=== PATIENT | female | born 1990 | race Caucasian/White ===

== ENCOUNTER 2016-04-29 14:00 | Inpatient (IN) | payer OTHER ==
[2016-04-29 15:17] LABS: BASOPHIL 0.2 % (0-2.0); EOSINOPHIL 4.5 % (0-4.5); MCH 27.6 pg (25.7-33.7); MCHC 33.1 g/dl (32.0-36.0); MEAN CELL VOLUME 83.4 fl (80-96); MEAN PLT VOLUME 8.7 fl (7.5-11.1); NEUTROPHILS 63.8 % (42.8-82.8); PLATELET COUNT 240 K/MM3 (134-434); WHITE BLOOD COUNT 9.1 K/mm3 (4.0-10.0)
[2016-04-29 15:20] LABS: URINE APPEARANCE CLEAR; URINE BILIRUBIN NEGATIVE (NEGATIVE); URINE BLOOD NEGATIVE (NEGATIVE); URINE COLOR LTYELLOW; URINE GLUCOSE (UA) NEGATIVE (NEGATIVE); URINE KETONE NEGATIVE (NEGATIVE); URINE NITRITE NEGATIVE (NEGATIVE); URINE UROBILINOGEN NEGATIVE E.U./dl (0.2-1.0)
[2016-04-29 15:26] LABS: URINE LEUK ESTERASE TRACE (NEGATIVE); URINE PROTEIN 2+ (NEGATIVE)
[2016-04-29 15:29] LABS: URINE RBC 2 /hpf (0-3); URINE WBC 6 /hpf (3-5)
[2016-04-29 15:39] LABS: ALBUMIN 2.5 g/dl (3.4-5.0); ANION GAP 12 (8-16); BILIRUBIN,TOTAL 0.1 mg/dL (0.2-1.0); CALCIUM 8.9 mg/dL (8.5-10.1); CO2 22 mmol/L (21-32); CREATININE 0.7 mg/dL (0.55-1.02); GLUCOSE,RANDOM 85 mg/dL (74-106); SGPT/ALT 15 U/L (12-78); TOT PROT 6.3 g/dl (6.4-8.2); URIC ACID 5.2 mg/dL (2.6-7.2)
[2016-04-29 15:45] LABS: ALK PHOS 177 U/L (45-117); SGOT/AST 15 U/L (15-37)
[2016-04-29 16:25] VITALS: BMI 46.8
[2016-04-29 16:34] LABS: ACTIVATED PTT 31.2 SECONDS (26.9-34.4)
[2016-04-29 16:41] LABS: INR 0.96 (0.82-1.09); PROTHROMBIN TIME (PATIENT) 10.5 SEC (9.98-11.88)
--- NOTE | 2016-04-29 17:16 | PN ---
Progress Note (short form) - Note Progress Note: cx closed, long ,vx -3 mi, fhr cat 1, bp 140/90 , asymptomatic , induction, rba discussed , agreed to have cervidil induction
--- NOTE | 2016-04-29 17:21 | HP ---
Past Medical History - Primary Care Physician PCP:: Aaron Moran - Admission Chief Complaint: 36 weeks, pih, for cervidll induction History of Present Illness: 26 yo f g 3 p1001, edc by elida 05/26/16 with hx of elevated BP and proteinuria referred by [facility] for induction of labor , rba discussed, no head ache, no blurred vision, no RUQ pain,, hx of pih with last History Source: Patient Limitations to Obtaining History: No Limitations - Past Medical History Pulmonary: Yes: Asthma ...: 3 ...Para: 1 ...Term: 1 ...: 0 ...Spon : 1 ...Induced : 0 ...Multiple Gestation: 0 ...EDC by Elida: 05/26/16 Additional OB History: intermediate risk for DS, maternity 21 negative - Past Surgical History Hx Myomectomy: No Hx Transabdominal Cerclage: No - Smoking History Smoking history: Never smoked Have you smoked in the past 12 months: No - Alcohol/Substance Use Hx Alcohol Use: No History of Substance Use: reports: None Home Medications - Allergies Allergies/Adverse Reactions: Allergies Allergy/AdvReac Type Severity Reaction Status Date / Time No Known Allergies Allergy Verified 04/29/16 15:34 - Home Medications Home Medications: Ambulatory Orders Albuterol Sulfate Inhaler - [Ventolin Hfa Inhaler -] 1 - 2 inh PO Q4H PRN Vitamins (Sjr) - 1 tab PO DAILY 04/15/16 Review of Systems - Review of Systems Constitutional: reports: No Symptoms Eyes: reports: No Symptoms HENT: reports: No Symptoms Neck: reports: No Symptoms Cardiovascular: reports: No Symptoms Respiratory: reports: No Symptoms Gastrointestinal: reports: No Symptoms Genitourinary: reports: No Symptoms Breasts: reports: No Symptoms Reported Musculoskeletal: reports: No Symptoms Integumentary: reports: No Symptoms Neurological: reports: No Symptoms Endocrine: reports: No Symptoms Hematology/Lymphatic: reports: No Symptoms Psychiatric: reports: No Symptoms Physical Exam - Maternity Vital Signs: Vital Signs Temperature 98.0 F 04/29/16 15:15 Pulse Rate 75 04/29/16 16:30 Respiratory Rate 20 04/29/16 16:30 Blood Pressure 141/89 04/29/16 16:30 O2 Sat by Pulse Oximetry (%) Constitutional: Yes: Well Nourished, No Distress, Calm Eyes: Yes: WNL, Conjunctiva Clear, EOM Intact HENT: Yes: WNL, Atraumatic, Normocephalic Neck: Yes: WNL, Supple, Trachea Midline Cardiovascular: Yes: WNL, Regular Rate and Rhythm Breast(s): Yes: WNL - Abdominal Exam/OB Fundal Height: 36 Number of Fetuses: Single Contractions: No Regularity: Irritability Intensity: Unaware Monitor Mode: External Heart Rate Location: [facility] Category: I Accelerations: Uniform - Vaginal Exam/OB Vaginal Bleediing: No Speculum Exam: No Dilatation (cm): closed Effacement (%): 0 Amniotic Membrane Status: Intact Presentation: Vertex/Position Station: -3 - Physical Exam Musculoskeletal: Yes: WNL Edema: Yes Edema: LLE: 1+, RLE: 1+ Deep Tendon Reflex Grade: Normal +2 Psychiatric: Yes: WNL - Labs Lab Results: CBC, BMP 04/29/16 14:45 04/29/16 14:45 Hemorrhage Risk Assessment - Risk Factors Medium Risk Factors: Yes: None High Risk Factors: Yes: None Risk Score: 1 Risk Level: Medium Risk Problem List - Problems (1) with 36 completed weeks gestation Code(s): Z3A.36 - 36 WEEKS GESTATION OF (2) induced hypertension, antepartum Code(s): O13.9 - GESTATIONAL HTN W/O SIGNIFICANT PROTEINURIA, UNSP TRIMESTER (3) Morbid obesity Code(s): E66.01 - MORBID (SEVERE) OBESITY DUE TO EXCESS CALORIES Qualifiers: Obesity type: due to excess calories Qualified Code(s): E66.01 - Morbid (severe) obesity due to excess calories Assessment/Plan plan admit, heart monitoring, . bp monitoring, monitor bp if diastolic greater 105 will start labatalol, ,possible Mgso4
[2016-04-29] MEDS ORDERED: DEXTROSE 5%-LACTATED RINGERS 500 ML IV ONE ×2 (18:20→19:20)
[2016-04-29] MEDS ORDERED: BUTORPHANOL TARTRATE 1 MG/ML VIAL IVPUSH PRN (18:32)
[2016-04-29] MEDS ORDERED: PROMETHAZINE HCL 25 MG/1 ML VIAL IVPUSH PRN (18:33)
[2016-04-29] MEDS ORDERED: DINOPROSTONE 10 MG VAGINAL SUPPOSITORY VG ONE (18:45)
[2016-04-29] MEDS ORDERED: AMPICILLIN - 2 GM in SODIUM CHLORIDE 100 ML IVPB ONE (20:17)
--- NOTE | 2016-04-29 20:17 | PN ---
Progress Note (short form) - Note Progress Note: c/o pain cx closed 50 vx -3 srom ,clear fhr cat 1 , contraction q 2min, short duration, wants pain meds Problem List - Problems (1) with 36 completed weeks gestation Code(s): Z3A.36 - 36 WEEKS GESTATION OF (2) induced hypertension, antepartum Code(s): O13.9 - GESTATIONAL HTN W/O SIGNIFICANT PROTEINURIA, UNSP TRIMESTER (3) Morbid obesity Code(s): E66.01 - MORBID (SEVERE) OBESITY DUE TO EXCESS CALORIES Qualifiers: Obesity type: due to excess calories Qualified Code(s): E66.01 - Morbid (severe) obesity due to excess calories
[2016-04-29] MEDS ORDERED: DEXTROSE 5%-LACTATED RINGERS 1,000 ML IV SCH (20:30)
[2016-04-29 21:21] LABS: HIV 1 & 2 AB NEGATIVE; HIV 1 AGp24 NEGATIVE
--- NOTE | 2016-04-29 21:58 | PN ---
Progress Note (short form) - Note Progress Note: cx 9 cm 100 vx 0 mr, clear fluid , variable dece with contraction, cervidil removed .o2, lt side, scalp electrode , revaluate 1n 15 min Problem List - Problems (1) with 36 completed weeks gestation Code(s): Z3A.36 - 36 WEEKS GESTATION OF (2) induced hypertension, antepartum Code(s): O13.9 - GESTATIONAL HTN W/O SIGNIFICANT PROTEINURIA, UNSP TRIMESTER (3) Morbid obesity Code(s): E66.01 - MORBID (SEVERE) OBESITY DUE TO EXCESS CALORIES Qualifiers: Obesity type: due to excess calories Qualified Code(s): E66.01 - Morbid (severe) obesity due to excess calories
[2016-04-29] MEDS ORDERED: oxyCODONE HCL 5 MG TABLET PO PRN (22:12)
[2016-04-29] MEDS ORDERED: METHYLERGONOVINE MALEATE 0.2 MG/1 ML AMP IM PRN (22:12)
[2016-04-29] MEDS ORDERED: BENZOCAINE 28 GM HEMORRHOIDAL OINTMENT TP PRN (22:12)
[2016-04-29] MEDS ORDERED: IBUPROFEN 600 MG TABLET (FP) PO PRN (22:12)
[2016-04-29] MEDS ORDERED: BENZOCAINE 20% 57 GM BOTTLE TP PRN (22:12)
[2016-04-29] MEDS ORDERED: BISACODYL 10 MG SUPP.RECT RC PRN (22:12)
[2016-04-29] MEDS ORDERED: WITCH HAZEL 50% (TUCKS) 40 PAD/JAR PAD TP PRN (22:12)
[2016-04-29] MEDS ORDERED: D5W-LR W/ 20 UNITS OXYTOCIN 1,000 ML IV SCH (22:15)
[2016-04-29 22:33] LABS: ARTERIAL BLOOD GAS BASE EXCESS -1.4 meq/l (-2-2); ARTERIAL BLOOD GAS pH 7.31 (7.35-7.45)
[2016-04-29 22:37] LABS: VENOUS PH 7.35 (7.32-7.42)
[2016-04-29 22:38] LABS: ARTERIAL BLOOD GAS PO2 22.4 mmHg (80-100); LPM/O2% 21%; PT. ON O2? no; TYPE OF O2 room air
[2016-04-29 22:39] LABS: ARTERIAL BLD GAS O2 SATURATION 45.6 % (90-98.9)
[2016-04-29] MEDS ORDERED: LABETALOL HCL 200 MG TABLET (FP) PO ONE (23:45)
[2016-04-30] MEDS ORDERED: AMPICILLIN - 1 GM in SODIUM CHLORIDE 100 ML IVPB SCH (00:20)
[2016-04-30] MEDS: LABETALOL HCL 200 MG TABLET (FP) PO PRN ×2 (06:42→14:57)
[2016-04-30 08:36] LABS: BASOPHIL 0.1 % (0-2.0); EOSINOPHIL 0.2 % (0-4.5); MCH 27.5 pg (25.7-33.7); MCHC 32.6 g/dl (32.0-36.0); MEAN CELL VOLUME 84.5 fl (80-96); MEAN PLT VOLUME 8.4 fl (7.5-11.1); NEUTROPHILS 77.3 % (42.8-82.8); PLATELET COUNT 224 K/MM3 (134-434); RDW 14.2 % (11.6-15.6); WHITE BLOOD COUNT 15.1 K/mm3 (4.0-10.0)
[2016-04-30] MEDS ORDERED: INFLUENZA VACCINE 60 MCG/0.5 ML (P/F DISP.SYRIN 16-17) IM ONE (09:00)
[2016-04-30] MEDS ORDERED: DIPHTH,PERTUSS(ACELL),TET 0.5 ML DISP.SYRIN IM ONE (10:00)
[2016-04-30] MEDS ORDERED: INFLUENZA VACCINE 45 MCG/0.5 ML (MDV 16-17) IM ONE (10:00)
[2016-04-30] MEDS: FERROUS SO4 325 MG TABLET (FP) PO SCH ×2 (10:11→22:00)
[2016-04-30] MEDS: PRENATAL VITAMINS W/ FOLIC ACID TABLET (FP) PO SCH (10:11)
[2016-04-30] MEDS: ACETAMINOPHEN 325 MG TABLET (FP) PO PRN (20:20)
[2016-04-30] MEDS ORDERED: SENNOSIDES/DOCUSATE COMBO (SENNA PLUS) TABLET (UD) PO PRN (22:00)
[2016-05-01] MEDS: LABETALOL HCL 200 MG TABLET (FP) PO PRN (01:00)
[2016-05-01 08:12] VITALS: BP 129/87; PULSE 80; TEMP 98.8
--- NOTE | 2016-05-01 08:16 | PN ---
Progress Note (short form) - Note Progress Note: ppd 1 doing well, no head ache, no blurred vision CBC, BMP 04/30/16 07:45 04/29/16 14:45 Last Vital Signs Temp Pulse Resp BP Pulse Ox 98.8 F 80 20 129/87 100 05/01/16 08:11 05/01/16 08:11 05/01/16 08:11 05/01/16 08:11 04/29/16 23:30 abdomen soft, non tender, no cva no ruq tenderness ext no edema, DTR normal ppd 2 doing well, pih bp stable Problem List - Problems (1) with 36 completed weeks gestation Code(s): Z3A.36 - 36 WEEKS GESTATION OF (2) induced hypertension, antepartum Code(s): O13.9 - GESTATIONAL HTN W/O SIGNIFICANT PROTEINURIA, UNSP TRIMESTER (3) Morbid obesity Code(s): E66.01 - MORBID (SEVERE) OBESITY DUE TO EXCESS CALORIES Qualifiers: Obesity type: due to excess calories Qualified Code(s): E66.01 - Morbid (severe) obesity due to excess calories
[2016-05-01] MEDS ORDERED: PNEUMOCOCCAL 23 VACCINE 0.5 ML VIAL IM ONE (08:30)
[2016-05-01] MEDS: FERROUS SO4 325 MG TABLET (FP) PO SCH (09:30)
[2016-05-01] MEDS: ACETAMINOPHEN 325 MG TABLET (FP) PO PRN (09:30)
[2016-05-01] MEDS: PRENATAL VITAMINS W/ FOLIC ACID TABLET (FP) PO SCH (09:32)
[2016-05-01] MEDS ORDERED: PNEUMOC 13-VAL CONJ-DIP CRM/PF 0.5 ML DISP.SYRIN IM ONE (10:00)
--- NOTE | 2016-05-02 22:27 | DS ---
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 Signs: Vital Signs Temperature 98.8 F 05/01/16 08:11 Pulse Rate 80 05/01/16 08:11 Respiratory Rate 20 05/01/16 08:11 Blood Pressure 129/87 05/01/16 08:11 O2 Sat by Pulse Oximetry (%) 100 04/29/16 23:30 Constitutional: Yes: Well Nourished, No Distress, Calm Eyes: Yes: WNL, Conjunctiva Clear, EOM Intact HENT: Yes: WNL, Atraumatic, Normocephalic Neck: Yes: WNL, Supple, Trachea Midline Cardiovascular: Yes: WNL, Regular Rate and Rhythm Respiratory: Yes: WNL, Regular, CTA Bilaterally Gastrointestinal: Yes: WNL ...Rectal Exam: Yes: WNL Renal/: Yes: WNL ....Post : Yes: Uterus firm, Uterus non-tender, Slight lochia rubra Breast(s): Yes: WNL Musculoskeletal: Yes: WNL Extremities: Yes: WNL Integumentary: Yes: WNL Neurological: Yes: WNL, Alert, Oriented ...Motor Strength: WNL Psychiatric: Yes: WNL, Alert, Oriented Labs: CBC, BMP 04/30/16 07:45 04/29/16 14:45 Delivery - Delivery Vaginal Delivery: Spontaneous (no complication) Type of Anesthesia: None Episiotomy/Laceration: None EBL (cc): 300 Delivery, Single - Stages of Labor Date 1st Stage Initiatied: 04/29/16 Time 1st Stage Initiated: 20:05 Date 2nd Stage Initiated: 04/29/16 Time 2nd Stage Initiated: 22:00 Date of Delivery: 04/29/16 Time of Delivery: 22:02 Time Placenta Delivered: 22:06 Placenta: Yes: Spontaneous - Condition of Splunk Architect/Medical Advisor Present: No Infant Gender: Male Weight: 5 lb 12 oz Position: OP Total Hours ROM (Hrs/Mins): 1h52m - 1 Minute Total Score: 8 5 Minutes Total Score: 9 - Feeding Plan Initial Plan: Elected not to breastfeed exclusively throughout hospitalization Discharge Summary Reason For Visit: PREECLAMPSIA Procedures: Principal: Condition: Good - Instructions Diet, Activity, Other Instructions: regular diet, follow up [facility] care 1weeks call [facility] for appointment. [phone] Disposition: HOME - Home Medications Comprehensive Discharge Medication List: Ambulatory Orders Albuterol Sulfate Inhaler - [Ventolin Hfa Inhaler -] 1 - 2 inh PO Q4H PRN Vitamins (Sjr) - 1 tab PO DAILY 04/15/16
== END 2016-05-01 13:37 | disposition home or self-care (01) | DRG 560 ==
LOC: JDEL 14:00 → JLDR 15:15 → J3W 04-30 00:01
PROVIDERS: ADMIT Obstetrics & Gynecology; ATTEND Obstetrics & Gynecology
PROC: 10E0XZZ Delivery of Products of Conception, External Approach (ICD-10-PCS; principal; 2016-04-29)
PROC: 3E0P7GC Introduction of Other Therapeutic Substance into Female Reproductive, Via Natural or Artificial Opening (ICD-10-PCS; 2016-04-29)
DX: O13.4 Gestational [pregnancy-induced] hypertension without significant proteinuria, complicating childbirth (principal); O99.214 Obesity complicating childbirth; O75.89 Other specified complications of labor and delivery; J45.909 Unspecified asthma, uncomplicated; E66.01 Morbid (severe) obesity due to excess calories; Z68.42 Body mass index [BMI] 45.0-49.9, adult; Z3A.36 36 weeks gestation of pregnancy; Z37.0 Single live birth
CPT/HCPCS: 36415; 36600; 71020-TC; 80053; 81003; 81015; 82803; 82977; 83010; 84550; 85025; 85044; 85610; 85730; 86593; 86850; 86900; 86901; 87389; 90686; 90715; 90732; G0008; G0009

== ENCOUNTER 2017-07-15 10:50 | Inpatient (IN) | payer OTHER ==
[2017-07-15] MEDS ORDERED: LABETALOL HCL 200 MG TABLET (FP) ONE ×2 (11:32→17:42)
[2017-07-15] MEDS ORDERED: LABETALOL HCL 200 MG TABLET (FP) PO ONE (11:35)
[2017-07-15 12:48] LABS: BASO % 0.3 % (0-2.0); EOS % 1.9 % (0-4.5); HEMATOCRIT 42.7 % (32.4-45.2); HEMOGLOBIN 13.8 GM/dL (10.7-15.3); LYMPH % 20.7 % (8-40); MCH 26.6 pg (25.7-33.7); MCHC 32.4 g/dl (32.0-36.0); MEAN PLT VOLUME 8.5 fl (7.5-11.1); NEUT % 69.1 % (42.8-82.8); PLATELET COUNT 263 K/MM3 (134-434); RBC 5.21 M/mm3 (3.60-5.2); RDW 15.2 % (11.6-15.6); WHITE BLOOD COUNT 8.5 K/mm3 (4.0-10.0)
[2017-07-15 13:04] LABS: URINE APPEARANCE CLEAR; URINE BILIRUBIN NEGATIVE (<2.0 mg/dL); URINE BLOOD NEGATIVE (NEGATIVE); URINE COLOR LTYELLOW; URINE GLUCOSE (UA) NEGATIVE (NEGATIVE); URINE KETONE NEGATIVE (NEGATIVE); URINE LEUK ESTERASE NEGATIVE (NEGATIVE); URINE NITRITE NEGATIVE (NEGATIVE); URINE UROBILINOGEN NEGATIVE mg/dL (0.2-1.0)
[2017-07-15 13:07] LABS: URINE PROTEIN 2+ (NEGATIVE)
[2017-07-15 13:08] LABS: EPI CELLS RARE /HPF (FEW); URINE BACTERIA RARE /hpf (NONE SEEN); URINE HYALINE CAST 1 /lpf; URINE MUCUS RARE
[2017-07-15 13:13] LABS: INR 0.94 (0.82-1.09); PROTHROMBIN TIME (PATIENT) 10.6 SEC (9.7-13.0)
[2017-07-15 13:16] LABS: ACTIVATED PTT 30.9 SECONDS (26.9-34.4)
[2017-07-15 13:25] LABS: URINE AMPHETAMINES NEGATIVE ng/ml (CUTOFF=500); URINE BARBITURATES NEGATIVE ng/ml (CUTOFF=200)
[2017-07-15 13:26] LABS: COCAINE, UR NEGATIVE ng/ml (CUTOFF=300); METHADONE, UR NEGATIVE ng/ml (CUTOFF=300); OPIATES, URI NEGATIVE ng/ml (CUTOFF=300); PHENCYCLIDINE,URINE NEGATIVE ng/ml (CUTOFF=25); URINE BENZODIAZEPINES NEGATIVE ng/ml (CUTOFF=200)
[2017-07-15 13:30] LABS: ALBUMIN 2.5 g/dl (3.4-5.0); ALK PHOS 180 U/L (45-117); ANION GAP 10 (8-16); BILIRUBIN,TOTAL 0.2 mg/dL (0.2-1.0); BLOOD UREA NITROGEN 11 mg/dL (7-18); CALCIUM 8.8 mg/dL (8.5-10.1); CHLORIDE 107 mmol/L (98-107); CO2 22 mmol/L (21-32); CREATININE 0.9 mg/dL (0.55-1.02); GLUCOSE,RANDOM 72 mg/dL (74-106); POTASSIUM 4.4 mmol/L (3.5-5.1); SGOT/AST 16 U/L (15-37); SGPT/ALT 18 U/L (12-78); SODIUM 139 mmol/L (136-145); TOT PROT 6.4 g/dl (6.4-8.2)
[2017-07-15 14:06] LABS: URINE TOTAL VOLUME 750 mL
[2017-07-15 14:26] LABS: CREATININE 0.9 mg/dL (0.55-1.02)
[2017-07-15 14:31] LABS: URINE PROTEIN 320 mg/dl
[2017-07-15 14:54] LABS: URIC ACID 6.7 mg/dL (2.6-7.2)
[2017-07-15] MEDS ORDERED: SODIUM PHOSPHATE/NA BIPHOS 133 ML ENEMA PR ONE (15:14)
[2017-07-15] MEDS ORDERED: DEXTROSE 5%-LACTATED RINGERS 1,000 ML IV SCH (15:15)
--- NOTE | 2017-07-15 15:24 | HP ---
Past Medical History - Primary Care Physician PCP:: Queenie Martin - Admission Chief Complaint: 27 yrs 36.5/7 weeks admitted due to severe preclempsia for induction of labor. 24 hr urine protein 2400 mg , cr clearance 83/ml/min, total urine vol 750 ml. Today upon arrival BP 160/109, 154/107, 159 /107, 135/81 . pt was given po Labetalol 200 mg at 11/40 am . no c/o headache, vomiting, epigastric pain History of Present Illness: pt did not have any care she presented first time on 07/13/17 BP was high , urine proten was 3+ , she was sent to L&D HELLP work up was done reported uric acid 7.6, GGt 20 U/L , Ast 16, ALT 17, urine protein 3+ BP recoeded 148/94 max. 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 Weeks Gestation by Dates: 36.2 ...EDC by Dates: 08/10/17 ...EDC by Sono: 08/07/17 (36.5 ) Additional OB History: G1 04/2014 6lbs h/o preclempsia in [facility]. G2 04/2016 5lbs [facility] Infectious Disease: Yes: Other (noknown) Psych: No: Addictions, Anxiety, Bipolar, Depression Endocrine: No: Diabetes Mellitus, Hyperthyroidism, Hypothyroidism - Past Surgical History Past Surgical History: Yes: None Hx Myomectomy: No Hx Transabdominal Cerclage: No - Smoking History Smoking history: Never smoked Have you smoked in the past 12 months: No - Alcohol/Substance Use Hx Alcohol Use: No History of Substance Use: reports: None Home Medications - Allergies Allergies/Adverse Reactions: Allergies Allergy/AdvReac Type Severity Reaction Status Date / Time No Known Allergies Allergy Verified 07/13/17 17:02 - Home Medications Home Medications: Ambulatory Orders Vitamins (Sjr) - 1 tab PO DAILY 04/15/16 Labetalol HCl [Normodyne -] 200 mg PO BID #14 tablet 07/14/17 Physical Exam - Maternity Vital Signs: Vital Signs Temperature 98.5 F 07/15/17 11:07 Pulse Rate 66 07/15/17 13:30 Respiratory Rate 18 07/15/17 13:30 Blood Pressure 139/81 07/15/17 13:30 O2 Sat by Pulse Oximetry (%) Selected Entries 07/14/17 07:18 Weight 288 lb Constitutional: Yes: Well Nourished, No Distress, Obese Eyes: Yes: WNL HENT: Yes: WNL, Normocephalic Neck: Yes: WNL Cardiovascular: Yes: WNL, Regular Rate and Rhythm Lungs: Clear to auscultation Breast(s): Yes: WNL - Abdominal Exam/OB Fundal Height: 36 Number of Fetuses: Single Presentation: Vertex Contractions: No Monitor Mode: External Heart Rate (range): 120-130 Heart Rate Location: Midline Category: I Accelerations: Uniform Decelerations: None - Vaginal Exam/OB Vaginal Bleediing: No Speculum Exam: No Dilatation (cm): close Effacement (%): unefface Amniotic Membrane Status: Intact Presentation: Vertex/Position Station: -3 - Physical Exam Musculoskeletal: Yes: WNL Extremities: Yes: WNL. No: Calf Tenderness Edema: Yes Edema: LLE: 1+, RLE: 1+ Deep Tendon Reflex Grade: Normal +2 ...Motor Strength: WNL Psychiatric: Yes: WNL, Alert, Oriented - Labs Lab Results: CBC, BMP 07/15/17 12:30 07/15/17 12:30 Laboratory Tests 07/13/17 07/13/17 07/13/17 18:20 18:20 18:20 Retic Count 1.01 D Haptoglobin 67 Uric Acid 7.6 H GGT AST ALT Urine Collection Time Urine Total Volume Urine Creatinine Creatinine Clearance Ur Total Protein 24 Hr Opiates Screen Cocaine Screen U Marijuana (THC) Screen RPR Titer HIV 1&2 Antibody Screen HIV P24 Antigen 07/13/17 07/15/17 07/15/17 18:20 11:30 11:45 Retic Count Haptoglobin Uric Acid GGT 20 AST 16 ALT Urine Collection Time 24 Urine Total Volume 750 Urine Creatinine 144.0 Creatinine Clearance 83 L Ur Total Protein 24 Hr Opiates Screen Negative Cocaine Screen Negative U Marijuana (THC) Screen Negative RPR Titer HIV 1&2 Antibody Screen HIV P24 Antigen 07/15/17 07/15/17 07/15/17 12:30 12:30 12:30 Retic Count Haptoglobin Uric Acid 6.7 D GGT AST 16 ALT 18 Urine Collection Time Urine Total Volume Urine Creatinine Creatinine Clearance Ur Total Protein 24 Hr Opiates Screen Cocaine Screen U Marijuana (THC) Screen RPR Titer Nonreactive HIV 1&2 Antibody Screen Negative HIV P24 Antigen Negative 07/15/17 14:00 Retic Count Haptoglobin Uric Acid GGT AST ALT Urine Collection Time Urine Total Volume Urine Creatinine Creatinine Clearance Ur Total Protein 24 Hr 2400 H Opiates Screen Cocaine Screen U Marijuana (THC) Screen RPR Titer HIV 1&2 Antibody Screen HIV P24 Antigen Laboratory Tests 07/15/17 07/15/17 11:30 14:00 Urine Collection Time 24 Urine Total Volume 750 Urine Creatinine 142.0 Ur Creatinine 24 Hour 1065.0 Creatinine Clearance 83 L Problem List - Problems (1) 36 weeks gestation of Code(s): Z3A.36 - 36 WEEKS GESTATION OF (2) Severe pre-eclampsia Code(s): O14.10 - SEVERE PRE-ECLAMPSIA, UNSPECIFIED TRIMESTER (3) Morbid obesity Code(s): E66.01 - MORBID (SEVERE) OBESITY DUE TO EXCESS CALORIES (4) Elective induction of labor planned Code(s): [id number] - Assessment/Plan 27 yrs , no care , 36.5/7 weeks , morbidly obese , severe preclempsia Plan Cervidil induction 3.50 PM inserted Labetalol 200 mg po q 6 h MgSo4 IV prn if BP is remains elevated Trial vag , del Gbs prophylaxis when active labor
[2017-07-15] MEDS ORDERED: DINOPROSTONE 10 MG VAGINAL SUPPOSITORY VG ONE (16:00)
[2017-07-15 16:15] VITALS: BMI 47.4
[2017-07-15] MEDS: LABETALOL HCL 200 MG TABLET (FP) PO PRN (17:45)
[2017-07-15] MEDS ORDERED: AMPICILLIN - 2 GM in SODIUM CHLORIDE 100 ML IVPB ONE (18:20)
[2017-07-15] MEDS ORDERED: TUBERCULIN PPD 5 TU/0.1ML SYRINGE (IN PATIENT USE ONLY) ID ONE (20:15)
[2017-07-16] MEDS ORDERED: LABETALOL HCL 200 MG TABLET (FP) ONE ×3 (04:04→17:03)
[2017-07-16] MEDS: LABETALOL HCL 200 MG TABLET (FP) PO PRN ×3 (04:20→17:06)
[2017-07-16] MEDS ORDERED: DINOPROSTONE 10 MG VAGINAL SUPPOSITORY VG ONE (05:25)
--- NOTE | 2017-07-16 05:42 | PN ---
Progress Note (short form) - Note Progress Note: h/o cervidil removed at 3.50 AM after 12 hrs of insertion no headache, epigastric pain, blurred vision or dizziness no c/o cramps FHR reassuring NST occassional UC & FHR cat-1 tracing . pelvic exam : Cx FT/30 %/IN/Vx-3/soft Selected Entries 07/15/17 07/15/17 07/15/17 18:00 19:00 20:00 Temperature Pulse Rate Blood Pressure 151/95 147/76 141/90 07/15/17 07/15/17 07/15/17 21:00 22:00 23:00 Temperature Pulse Rate Blood Pressure 140/81 148/89 140/90 07/16/17 07/16/17 07/16/17 00:00 01:00 02:00 Temperature 98.4 F Pulse Rate 64 Blood Pressure 143/80 142/77 140/80 07/16/17 03:00 Temperature Pulse Rate Blood Pressure 132/77 IMP : Severe Preclempsia on Po Labetalol 200 mg q6h s/p 12 hrs of cervidil induction not effective . FHR tracing reasuring Plan Insert 2 nd cervidil done at 5.25 AM reg diet Problem List - Problems (1) 36 weeks gestation of Code(s): Z3A.36 - 36 WEEKS GESTATION OF (2) Severe pre-eclampsia Code(s): O14.10 - SEVERE PRE-ECLAMPSIA, UNSPECIFIED TRIMESTER (3) Morbid obesity Code(s): E66.01 - MORBID (SEVERE) OBESITY DUE TO EXCESS CALORIES (4) Elective induction of labor planned Code(s): [id number] -
[2017-07-16 06:06] LABS: HBsAG SCREEN Negative (Negative)
--- NOTE | 2017-07-16 07:17 | PN ---
Progress Note (short form) - Note Progress Note: 6.38 AM i was called to mention that patient is bleeding & alcides is full of blood nurse had taken out cervidil , blood clot noted . 6.40 AM exam cx 7 cm/100 % /memb bulging /vx -1 station AROM done clear large amount fluid noted scalp electrde insertion attempted , unsuccessful pt continues to push 6.43AM fully dilated 644AM baby delievered , OA position , 8/8 , Girl 6.46 placenta delivered EBL 350 ml perineum intact baby transferred to 3 nursery because under 37 weeks pt did not get GBS prophylaxis , due to precipitate labor 156/94, pulse 66/min plan pp pitocin & MgSo4 IV Problem List - Problems (1) 36 weeks gestation of Code(s): Z3A.36 - 36 WEEKS GESTATION OF (2) Severe pre-eclampsia Code(s): O14.10 - SEVERE PRE-ECLAMPSIA, UNSPECIFIED TRIMESTER (3) Morbid obesity Code(s): E66.01 - MORBID (SEVERE) OBESITY DUE TO EXCESS CALORIES (4) Elective induction of labor planned Code(s): [id number] - (5) Normal vaginal delivery Code(s): O80 - ENCOUNTER FOR FULL-TERM UNCOMPLICATED DELIVERY
[2017-07-16] MEDS ORDERED: BENZOCAINE 20% 57 GM BOTTLE TP PRN (07:18)
[2017-07-16] MEDS ORDERED: BENZOCAINE 28 GM HEMORRHOIDAL OINTMENT TP PRN (07:18)
[2017-07-16] MEDS ORDERED: WITCH HAZEL 50% (TUCKS) 40 PAD/JAR PAD TP PRN (07:18)
[2017-07-16] MEDS ORDERED: oxyCODONE HCL 5 MG TABLET PO PRN (07:18)
[2017-07-16] MEDS ORDERED: BISACODYL 10 MG SUPP.RECT RC PRN (07:18)
[2017-07-16] MEDS ORDERED: MAGNESIUM 4GM/H20 - 4 GM/100 ML IVPB IVPB SCH (07:30)
[2017-07-16] MEDS ORDERED: OXYTOCIN 20 UNITS in 0.9% NS 20 UNIT/1,000 ML INFUS.BAG IV SCH (07:30)
[2017-07-16 07:46] LABS: ARTERIAL BLD GAS O2 SATURATION 21.8 % (90-98.9); ARTERIAL BLOOD GAS BASE EXCESS -1.3 meq/l (-2-2); ARTERIAL BLOOD GAS PCO2 55.1 mmHg (35-45); ARTERIAL BLOOD GAS pH 7.29 (7.35-7.45)
[2017-07-16 07:54] LABS: VENOUS PC02 45.9 mmHg (38-52); VENOUS PH 7.34 (7.32-7.42); VENOUS PO2 20.5 mmHg (28-48)
[2017-07-16 08:06] LABS: RUBELLA IgG ANTIBODY 5.45 index (Immune >0.99)
[2017-07-16 08:08] LABS: ARTERIAL BLOOD GAS PO2 16.4 mmHg (80-100)
[2017-07-16] MEDS ORDERED: oxyCODONE HCL 5 MG TABLET ONE (08:08)
[2017-07-16] MEDS ORDERED: ACETAMINOPHEN 325 MG TABLET (FP) ONE (08:08)
[2017-07-16] MEDS: ACETAMINOPHEN 325 MG TABLET (FP) PO PRN (08:15)
--- NOTE | 2017-07-16 08:17 | PN ---
Delivery - Delivery Vaginal Delivery: Spontaneous (pt suddenly started bleeding post 2nd cervidil insertion , she dilated rapidly within 1 hr frm FT to full dilatation . baby delievered in OA position , immediate oral & nasal suction was done .placenta expelled completely by herself) Type of Anesthesia: None Episiotomy/Laceration: None EBL (cc): 350 Delivery, Single - Stages of Labor Date 1st Stage Initiatied: 07/16/17 Time 1st Stage Initiated: 05:30 Date 2nd Stage Initiated: 07/16/17 Time 2nd Stage Initiated: 06:43 Date of Delivery: 07/16/17 Time of Delivery: 06:44 Time Placenta Delivered: 06:46 Placenta: Yes: Spontaneous, Uterine Exploration (baby transferred to 3 NICU) - Condition of Infant Central Processing Tech/Support Service Tech Present: No Gender: Female Weight: 5 lb 15 oz Position: OA Total Hours ROM (Hrs/Mins): 6mins - 1 Minute Total Score: 8 5 Minutes Total Score: 8 - Feeding Plan Initial Plan: Elected not to breastfeed exclusively throughout hospitalization Remarks - Remarks Remarks: 27 yrs , 36.5 weeks by elida, no care , severe preclempsia , admitted 07/15/17 rx po labetalol Cervidil insertion for induction of labor 07/15/17 ,, removed after 12 hrs 2nd cervidil inserted 07/16/17 within 1 hr pt dilated fully post partm 1 & half hr after delivery still bleeding with clots , repeat MEU done blood clots evacuated IM hemabate 250 mcg given Plan when bleeding is controlled, will start MgSo4 iv & will continue po labetalol for BP control 8.15 AM Pulse 71 BP 153/93
[2017-07-16] MEDS ORDERED: CARBOPROST TROMETHAMINE 250 MCG/ML AMPUL IM ONE (08:45)
[2017-07-16] MEDS ORDERED: MAGNESIUM SULFATE 20GM/500ML - 20 GM/500 ML INFUS.BAG IVPB SCH (09:00)
[2017-07-16] MEDS: FERROUS SO4 325 MG TABLET (FP) PO SCH ×2 (09:05→17:06)
[2017-07-16] MEDS: PRENATAL VITAMINS W/ FOLIC ACID TABLET (FP) PO SCH (09:05)
[2017-07-16] MEDS ORDERED: OXYTOCIN 20 UNITS in 0.9% NS 20 UNIT/1,000 ML INFUS.BAG IV ONE (10:28)
[2017-07-16] MEDS ORDERED: MAGNESIUM SULFATE 20GM/500ML - 20 GM/500 ML INFUS.BAG ONE (10:28)
[2017-07-16] MEDS ORDERED: MAGNESIUM 4GM/H20 - 4 GM/100 ML IVPB IVPB ONE (10:28)
[2017-07-16] MEDS: DEXTROSE 5%-LACTATED RINGERS 1,000 ML IV SCH (10:40)
--- NOTE | 2017-07-16 17:48 | CON.NEP ---
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 Pulmonary: Yes: Asthma (secondary to allergy , last 4 months ago, rx albuterol prn) Infectious Disease: Yes: Other (noknown) Psych: No: Addictions, Anxiety, Bipolar, Depression Endocrine: No: Diabetes Mellitus, Hyperthyroidism, Hypothyroidism - Past Surgical History Past Surgical History: Yes: None - Alcohol/Substance Use Hx Alcohol Use: No History of Substance Use: reports: None - Smoking History Smoking history: Never smoked Have you smoked in the past 12 months: No Home Medications - Allergies Allergies/Adverse Reactions: Allergies Allergy/AdvReac Type Severity Reaction Status Date / Time No Known Allergies Allergy Verified 07/15/17 18:49 - Home Medications Home Medications: Ambulatory Orders Labetalol HCl [Normodyne -] 200 mg PO BID #14 tablet 07/14/17 Nephrology Consult - Height Height: 5 ft 6 in - Weight Weight: 294 lb - BMI Body Mass Index (BMI): 47.4 - Lab Results CBC,BMP: CBC, BMP 07/15/17 12:30 07/15/17 12:30 Anion Gap: Anion Gap Anion Gap 10 (8-16) 07/15/17 12:30 - Physical Examination Vital Signs: Vital Signs Temperature 98.3 F 07/16/17 16:00 Pulse Rate 61 07/16/17 17:00 Respiratory Rate 18 07/16/17 17:00 Blood Pressure 140/80 07/16/17 17:00 O2 Sat by Pulse Oximetry (%) Assessment/Plan PIH continue prn labetalol monitor urine protein
[2017-07-16] MEDS: AMPICILLIN - 1 GM in SODIUM CHLORIDE 100 ML IVPB SCH ×2 (19:34→19:35)
[2017-07-16 20:11] LABS: URINE CREATININE 32.3 mg/dL (20-320)
[2017-07-16 20:14] LABS: RATIO URIN PROTEIN/URIN CREAT 3.03 MG/DL
[2017-07-17] MEDS ORDERED: ACETAMINOPHEN 325 MG TABLET (FP) ONE (03:09)
[2017-07-17] MEDS: ACETAMINOPHEN 325 MG TABLET (FP) PO PRN (03:20)
[2017-07-17] MEDS ORDERED: LABETALOL HCL 200 MG TABLET (FP) ONE (06:12)
--- NOTE | 2017-07-17 06:13 | PN ---
Post Progress Note - Subjective Subjective: h/o headache at 3.30 am no c/o cramps bleeding is moderate to small qty Post Day: 1 Type of Delivery: Vital Signs: Vital Signs Temperature 97.9 F 07/17/17 02:00 Pulse Rate 70 07/17/17 05:00 Respiratory Rate 18 07/17/17 05:00 Blood Pressure 119/66 07/17/17 05:00 O2 Sat by Pulse Oximetry (%) Selected Entries 07/17/17 07/17/17 07/17/17 00:00 01:00 02:00 Blood Pressure 121/80 126/82 123/81 07/17/17 07/17/17 03:00 04:00 Blood Pressure 128/78 127/78 6.00AM BP 140/78 , pulse 66/min , temp 98 Breast Exam: Yes: Soft, Other (not pumping ). No: Engorged Uterus: Yes: Fundus Firm, Fundus below umbilicus, Non-tender, Other (obese abdomen ) Lochia: Yes: Rubra Lochia, amount: Moderate Extremities: Yes: Calves non-tender, Edema (1+/1+) Perineum: Yes: Intact Activity: Ambulating - Labs Labs: CBC WBC 8.5 K/mm3 (4.0-10.0) D 07/15/17 12:30 RBC 5.21 M/mm3 (3.60-5.2) H 07/15/17 12:30 Hgb 13.8 GM/dL (10.7-15.3) D 07/15/17 12:30 Hct 42.7 % (32.4-45.2) 07/15/17 12:30 MCV 82.0 fl (80-96) 07/15/17 12:30 MCH 26.6 pg (25.7-33.7) 07/15/17 12:30 MCHC 32.4 g/dl (32.0-36.0) 07/15/17 12:30 RDW 15.2 % (11.6-15.6) 07/15/17 12:30 Plt Count 263 K/MM3 (134-434) 07/15/17 12:30 MPV 8.5 fl (7.5-11.1) 07/15/17 12:30 Neutrophils % 69.1 % (42.8-82.8) 07/15/17 12:30 Lymphocytes % 20.7 % (8-40) D 07/15/17 12:30 Monocytes % 8.0 % (3.8-10.2) 07/15/17 12:30 Eosinophils % 1.9 % (0-4.5) D 07/15/17 12:30 Basophils % 0.3 % (0-2.0) 07/15/17 12:30 Nucleated RBC % 0 % (0-0) 07/15/17 12:30 Laboratory Tests 07/16/17 07/16/17 07/17/17 18:15 19:25 00:40 WBC RBC Hgb Hct Plt Count Uric Acid Magnesium 3.4 H 3.6 H Urine Protein U Random Total Protein 98 H Urine Creatinine 32.3 Protein/Creatinin Ratio 3.03 07/17/17 07/17/17 07/17/17 06:25 06:25 08:10 WBC 9.8 RBC 4.69 Hgb 12.5 Hct 38.5 Plt Count 217 Uric Acid 6.1 Magnesium 3.7 H Urine Protein 155 U Random Total Protein Urine Creatinine Protein/Creatinin Ratio Other Findings, Remarks: i/o 1525/1300 Rs CTA Problem List - Problems (1) 36 weeks gestation of Code(s): Z3A.36 - 36 WEEKS GESTATION OF (2) Severe pre-eclampsia Code(s): O14.10 - SEVERE PRE-ECLAMPSIA, UNSPECIFIED TRIMESTER (3) Morbid obesity Code(s): E66.01 - MORBID (SEVERE) OBESITY DUE TO EXCESS CALORIES (4) Elective induction of labor planned Code(s): [id number] - (5) Normal vaginal delivery Code(s): O80 - ENCOUNTER FOR FULL-TERM UNCOMPLICATED DELIVERY (6) follow-up Code(s): Z39.2 - ENCOUNTER FOR ROUTINE FOLLOW-UP Assessment/Plan pt on IV MgSo4 infusion for prophylaxis pt did not require any Labetalol since 5.00 PM 07/16/17 bleeding is under control Plan will d/c MgSo4 after 24 hrs at 11.00 AM nephrology consult of Dr Hakan fernandez
[2017-07-17] MEDS: DEXTROSE 5%-LACTATED RINGERS 1,000 ML IV SCH (06:15)
[2017-07-17] MEDS: LABETALOL HCL 200 MG TABLET (FP) PO PRN ×3 (06:15→17:56)
[2017-07-17 08:01] LABS: BASO % 0.2 % (0-2.0); EOS % 3.4 % (0-4.5); HEMATOCRIT 38.5 % (32.4-45.2); HEMOGLOBIN 12.5 GM/dL (10.7-15.3); MCH 26.7 pg (25.7-33.7); MCHC 32.4 g/dl (32.0-36.0); MEAN CELL VOLUME 82.2 fl (80-96); MEAN PLT VOLUME 8.3 fl (7.5-11.1); MONO % 5.4 % (3.8-10.2); PLATELET COUNT 217 K/MM3 (134-434); RBC 4.69 M/mm3 (3.60-5.2); RDW 15.2 % (11.6-15.6); WHITE BLOOD COUNT 9.8 K/mm3 (4.0-10.0)
[2017-07-17 09:20] LABS: URIC ACID 6.1 mg/dL (2.6-7.2)
[2017-07-17] MEDS: FERROUS SO4 325 MG TABLET (FP) PO SCH ×2 (09:55→17:56)
[2017-07-17] MEDS: PRENATAL VITAMINS W/ FOLIC ACID TABLET (FP) PO SCH (09:56)
[2017-07-17 09:57] LABS: MAGNESIUM 3.7 mg/dL (1.8-2.4)
[2017-07-17] MEDS ORDERED: DIPHTH,PERTUSS(ACELL),TET 0.5 ML DISP.SYRIN IM ONE (10:00)
--- NOTE | 2017-07-17 19:36 | PN ---
Progress Note (short form) - Note Progress Note: BP by me 170/106 will give labetalol stat no headache/nausea/visual symptoms Lungs clear heart reg ext no edema IMP- PIH Plan- follow BP Current Medications Acetaminophen (Tylenol -) 650 mg PO Q3H PRN PRN Reason: PAIN LEVEL 1-5 Last Admin: 07/17/17 03:20 Dose: 650 mg Benzocaine (Americaine 20% [place] -) 1 spray TP PRN PRN PRN Reason: PAIN Benzocaine (Americaine Ointment -) 1 applic TP PRN PRN PRN Reason: PAIN Bisacodyl (Dulcolax Suppository -) 10 mg RC PRN PRN PRN Reason: CONSTIPATION Ferrous Sulfate (Feosol -) 325 mg PO BIDWM [facility] Last Admin: 07/17/17 17:56 Dose: 325 mg Labetalol HCl (Normodyne -) 200 mg PO Q6H PRN PRN Reason: HYPERTENSION Last Admin: 07/17/17 17:56 Dose: 200 mg Oxycodone HCl (Roxicodone -) 5 mg PO Q6H PRN PRN Reason: PAIN LEVEL 7 - 10 Last Admin: 07/16/17 08:15 Dose: 5 mg Multivit/Folic Acid/Iron ( Vitamins (Sjr) -) 1 tab PO DAILY [facility] Last Admin: 07/17/17 09:56 Dose: 1 tab Senna/Docusate Sodium (Pericolace -) 2 tablet PO HS PRN PRN Reason: CONSTIPATION Witch Lin/Glycerin (Tucks Pads -) 1 pad TP PRN PRN PRN Reason: PAIN Last Vital Signs Temp Pulse Resp BP Pulse Ox 98.7 F 62 20 147/92 07/17/17 17:45 07/17/17 17:45 07/17/17 17:45 07/17/17 17:45
[2017-07-17] MEDS ORDERED: LABETALOL HCL 200 MG TABLET (FP) PO ONE (19:45)
[2017-07-17] MEDS ORDERED: SENNOSIDES/DOCUSATE COMBO (SENNA PLUS) TABLET (UD) PO PRN (22:00)
[2017-07-18] MEDS: LABETALOL HCL 200 MG TABLET (FP) PO PRN ×2 (00:25→06:18)
[2017-07-18] MEDS: NIFEdipine E.R. 30 MG TABLET (FP) PO SCH (08:42)
[2017-07-18] MEDS: FERROUS SO4 325 MG TABLET (FP) PO SCH ×2 (08:42→17:19)
--- NOTE | 2017-07-18 09:04 | PN ---
Post Progress Note - Subjective Subjective: no c/o headache BP yesterday recorded by Dr mcclendon was 170/106 Post Day: 2 Type of Delivery: Vital Signs: Vital Signs Temperature 98.7 F 07/17/17 22:00 Pulse Rate 73 07/18/17 06:00 Respiratory Rate 18 07/18/17 06:00 Blood Pressure 136/77 07/18/17 06:00 O2 Sat by Pulse Oximetry (%) Selected Entries 07/17/17 07/17/17 07/18/17 17:45 22:00 00:24 Blood Pressure 147/92 145/85 141/80 07/18/17 07/18/17 02:00 06:00 Blood Pressure 123/69 136/77 Breast Exam: Yes: Soft, Other (not BF ). No: Engorged Uterus: Yes: Fundus Firm, Fundus @ umbilicus Lochia: Yes: Rubra Lochia, amount: Moderate Extremities: Yes: Calves non-tender Perineum: Yes: Intact Activity: Ambulating - Labs Labs: CBC WBC 9.8 K/mm3 (4.0-10.0) 07/17/17 06:25 RBC 4.69 M/mm3 (3.60-5.2) 07/17/17 06:25 Hgb 12.5 GM/dL (10.7-15.3) 07/17/17 06:25 Hct 38.5 % (32.4-45.2) 07/17/17 06:25 MCV 82.2 fl (80-96) 07/17/17 06:25 MCH 26.7 pg (25.7-33.7) 07/17/17 06:25 MCHC 32.4 g/dl (32.0-36.0) 07/17/17 06:25 RDW 15.2 % (11.6-15.6) 07/17/17 06:25 Plt Count 217 K/MM3 (134-434) 07/17/17 06:25 MPV 8.3 fl (7.5-11.1) 07/17/17 06:25 Neutrophils % 67.0 % (42.8-82.8) 07/17/17 06:25 Lymphocytes % 24.0 % (8-40) 07/17/17 06:25 Monocytes % 5.4 % (3.8-10.2) 07/17/17 06:25 Eosinophils % 3.4 % (0-4.5) 07/17/17 06:25 Basophils % 0.2 % (0-2.0) 07/17/17 06:25 Nucleated RBC % 0 % (0-0) 07/17/17 06:25 Laboratory Tests 07/17/17 07/17/17 07/18/17 06:25 08:10 08:05 Uric Acid 6.1 6.5 Urine Protein 155 Problem List - Problems (1) 36 weeks gestation of Code(s): Z3A.36 - 36 WEEKS GESTATION OF (2) Severe pre-eclampsia Code(s): O14.10 - SEVERE PRE-ECLAMPSIA, UNSPECIFIED TRIMESTER (3) Morbid obesity Code(s): E66.01 - MORBID (SEVERE) OBESITY DUE TO EXCESS CALORIES (4) Elective induction of labor planned Code(s): WYP8544 - (5) Normal vaginal delivery Code(s): O80 - ENCOUNTER FOR FULL-TERM UNCOMPLICATED DELIVERY (6) follow-up Code(s): Z39.2 - ENCOUNTER FOR ROUTINE FOLLOW-UP Assessment/Plan ass elevated BP , s/p severe preclempsia Plan discussed with Dr Mcclendon, will start today onPo Procardia 30 XL, watch for BP today Labetalol prn will do social science instructor consult do not discharge today
[2017-07-18] MEDS: PRENATAL VITAMINS W/ FOLIC ACID TABLET (FP) PO SCH (09:12)
--- NOTE | 2017-07-18 17:53 | PN ---
Progress Note (short form) - Note Progress Note: BP 160/100 by me manual 139/85 by digital device 140/92 by nurse manually Current Medications Acetaminophen (Tylenol -) 650 mg PO Q3H PRN PRN Reason: PAIN LEVEL 1-5 Last Admin: 07/17/17 03:20 Dose: 650 mg Benzocaine (Americaine 20% [place] -) 1 spray TP PRN PRN PRN Reason: PAIN Benzocaine (Americaine Ointment -) 1 applic TP PRN PRN PRN Reason: PAIN Bisacodyl (Dulcolax Suppository -) 10 mg RC PRN PRN PRN Reason: CONSTIPATION Ferrous Sulfate (Feosol -) 325 mg PO BIDWM [facility] Last Admin: 07/18/17 17:19 Dose: 325 mg Nifedipine (Procardia Xl -) 30 mg PO DAILY [facility] Last Admin: 07/18/17 08:42 Dose: 30 mg Oxycodone HCl (Roxicodone -) 5 mg PO Q6H PRN PRN Reason: PAIN LEVEL 7 - 10 Last Admin: 07/16/17 08:15 Dose: 5 mg Multivit/Folic Acid/Iron ( Vitamins (Sjr) -) 1 tab PO DAILY [facility] Last Admin: 07/18/17 09:12 Dose: 1 tab Senna/Docusate Sodium (Pericolace -) 2 tablet PO HS PRN PRN Reason: CONSTIPATION Witch Lin/Glycerin (Tucks Pads -) 1 pad TP PRN PRN PRN Reason: PAIN pt is feeling fine eager to be d/c was started on Procardial xl 30mg earlier in am Last Vital Signs Temp Pulse Resp BP Pulse Ox 98.2 F 71 20 158/92 07/18/17 13:15 07/18/17 16:20 07/18/17 16:25 07/18/17 16:25 Lungs clear heart reg Abd soft Ext no edema IMP- PIH uncomplicated Plan follow BPs through the day today continue procardia xl daily mointor BP
[2017-07-18] MEDS ORDERED: NIFEdipine E.R. 30 MG TABLET (FP) PO ONE (22:15)
--- NOTE | 2017-07-19 07:40 | DS ---
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 Vital Signs: Vital Signs Temperature 98.6 F 07/18/17 21:45 Pulse Rate 75 07/19/17 05:57 Respiratory Rate 18 07/19/17 05:57 Blood Pressure 131/66 07/19/17 05:57 O2 Sat by Pulse Oximetry (%) Selected Entries 07/18/17 07/18/17 07/18/17 19:13 21:45 21:50 Blood Pressure 141/88 141/91 148/90 07/19/17 02:00 Blood Pressure 155/98 Constitutional: Yes: Well Nourished, Obese Eyes: Yes: WNL HENT: Yes: WNL, Other (no headache) Neck: Yes: WNL Cardiovascular: Yes: WNL Respiratory: Yes: WNL Gastrointestinal: Yes: WNL ....Post : Yes: Uterus firm, Uterus non-tender, Moderate lochia rubra ( perineum intact) Breast(s): Yes: WNL (not BF) Musculoskeletal: Yes: WNL Extremities: Yes: WNL. No: Calf Tenderness Edema: No Integumentary: Yes: WNL, Tattoos Neurological: Yes: WNL, Alert, Oriented, Other (reflexes normal) ...Motor Strength: WNL Labs: CBC, BMP 07/17/17 06:25 07/15/17 12:30 Delivery - Delivery Vaginal Delivery: Spontaneous (pt suddenly started bleeding post 2nd cervidil insertion , she dilated rapidly within 1 hr frm FT to full dilatation . baby delievered in OA position , immediate oral & nasal suction was done .placenta expelled completely by herself) Type of Anesthesia: None Episiotomy/Laceration: None EBL (cc): 350 Delivery, Single - Stages of Labor Date 1st Stage Initiatied: 07/16/17 Time 1st Stage Initiated: 05:30 Date 2nd Stage Initiated: 07/16/17 Time 2nd Stage Initiated: 06:43 Date of Delivery: 07/16/17 Time of Delivery: 06:44 Time Placenta Delivered: 06:46 Placenta: Yes: Spontaneous, Uterine Exploration (baby transferred to 3 NICU) - Condition of Banquet Attendant/Dry Wall Applicator Present: No Gender: Female Weight: 5 lb 15 oz Position: OA Total Hours ROM (Hrs/Mins): 6mins - 1 Minute Total Score: 8 5 Minutes Total Score: 8 - Feeding Plan Initial Plan: Elected not to breastfeed exclusively throughout hospitalization Remarks - Remarks Remarks: 27 yrs , 36.5 weeks by lourdesjr, no care , severe preclempsia , admitted 07/15/17 rx po labetalol Cervidil insertion for induction of labor 07/15/17 ,, removed after 12 hrs 2nd cervidil inserted 07/16/17 within 1 hr pt dilated fully post partm 1 & half hr after delivery still bleeding with clots , repeat MEU done blood clots evacuated IM hemabate 250 mcg given Plan when bleeding is controlled, will start MgSo4 iv & will continue po labetalol for BP control 8.15 AM Pulse 71 BP 153/93 pp she received MgSo4 for 24 hrs she was receiving 200 mg po labetalol q 6h she was placed on Procardia 30 XL bid 07/18/17 DR drummond guest services director managed BP Baby in Nic[place] discharge today , bp meds prescribed by Dr drummond recommend bp follow up Discharge Summary Reason For Visit: INDUCTION OF LABOR FOR SEVERE PRE-CLAMPSIA Current Active Problems 36 weeks gestation of (Acute) Elective induction of labor planned (Acute) Normal vaginal delivery (Acute) follow-up (Acute) Severe pre-eclampsia (Acute) Condition: Stable - Instructions Diet, Activity, Other Instructions: Post Instructions DIET: Continue good diet high in protein, calcium, and iron rich foods. Drink at least eight (8) glasses of water daily in addition to other fluids. ___ LoCarb/Low Calorie Diet MEDICATIONS: Continue vitamins and iron as previously directed. Motrin and Tylenol may be taken for minor discomfort. ACTIVITY: Mild to moderate exercise may be started in two (2) weeks. Take frequent rest periods. Resume normal activity after six (6) week check up. WOUND CARE OF OPERATIVE SITE: Continue use of perineal bottle until vaginal discharge stops. Keep area clean. Shower daily. Keep abdominal wound dry. Report any drainage or redness to physician. Tub baths, tampons and douches are not permitted for [address] Breast feeding & or Bottle feeding BREAST CARE: (For those that are not ): If engorgement occurs: Wear tight fitting bra. Take Tylenol or Motrin for pain. Apply cold packs (ice in bags to each breast ) FAMILY PLANNING: There are many control alternatives to pursue and they should be discussed at your first office visit. You may resume sexual activity after your six (6) week check up. (Remember, is not a contraceptive) NEXT PHYSICIAN APPOINTMENT: Be certain to call for a two (2 ) week appointment, unless otherwise directed. Follow with Medical Doctor for BP Take BP meds as prescribed by Retirement Consultant Call Clinic or got to Emergency Dept if you have any of the following: Heavy vaginal bleeding Painful urination Leg pain Unusual odor noted to vaginal bleeding High fever Red streaking noted on breast Referrals: Queenie Martin MD [Staff Physician] - Disposition: HOME - Home Medications Comprehensive Discharge Medication List: Ambulatory Orders Labetalol HCl [Normodyne -] 200 mg PO BID #14 tablet 07/14/17 Acetaminophen [Tylenol .Regular Strength -] 650 mg PO Q3H PRN tablet 07/19/17 Vitamins (Sjr) - 1 tab PO DAILY #30 tablet 07/19/17
[2017-07-19] MEDS: FERROUS SO4 325 MG TABLET (FP) PO SCH (07:58)
[2017-07-19 08:42] VITALS: TEMP 98.3
[2017-07-19] MEDS: PRENATAL VITAMINS W/ FOLIC ACID TABLET (FP) PO SCH (10:06)
[2017-07-19] MEDS: NIFEdipine E.R. 30 MG TABLET (FP) PO SCH (10:06)
[2017-07-19 12:19] VITALS: BP 138/97; PULSE 72
--- NOTE | 2017-07-19 12:40 | PN ---
Progress Note (short form) - Note Progress Note: Renal Follow up for hypertension Pt seen and examined at the bedside awake and alert no acute complaints denies any RUELAS, CP, blurry vision, dizziness, N/v Vital Signs Temp 98.3 F 07/19/17 08:41 Pulse 72 07/19/17 12:00 Resp 20 07/19/17 12:00 BP 138/97 07/19/17 12:00 Pulse Ox NAD MMM Trace LE edema CBC, BMP 07/17/17 06:25 07/15/17 12:30 Current Medications Acetaminophen (Tylenol -) 650 mg PO Q3H PRN PRN Reason: PAIN LEVEL 1-5 Last Admin: 07/17/17 03:20 Dose: 650 mg Benzocaine (Americaine 20% [place] -) 1 spray TP PRN PRN PRN Reason: PAIN Benzocaine (Americaine Ointment -) 1 applic TP PRN PRN PRN Reason: PAIN Bisacodyl (Dulcolax Suppository -) 10 mg RC PRN PRN PRN Reason: CONSTIPATION Ferrous Sulfate (Feosol -) 325 mg PO BIDWM [facility] Last Admin: 07/19/17 07:58 Dose: 325 mg Nifedipine (Procardia Xl -) 30 mg PO DAILY [facility] Last Admin: 07/19/17 10:06 Dose: 30 mg Oxycodone HCl (Roxicodone -) 5 mg PO Q6H PRN PRN Reason: PAIN LEVEL 7 - 10 Last Admin: 07/16/17 08:15 Dose: 5 mg Multivit/Folic Acid/Iron ( Vitamins (Sjr) -) 1 tab PO DAILY [facility] Last Admin: 07/19/17 10:06 Dose: 1 tab Senna/Docusate Sodium (Pericolace -) 2 tablet PO HS PRN PRN Reason: CONSTIPATION Last Admin: 07/18/17 22:19 Dose: 2 tablet Witch Lin/Glycerin (Tucks Pads -) 1 pad TP PRN PRN PRN Reason: PAIN 27 year old woman with PMhx of pre-clampsia with postpatum hypertension secondary to preeclampsia # Hypertension secondary to preeclampia Pt with proteinuria and hypertension no LEFT or plt abnormalities to suggest HELLP BP improved on Nifedpine ER pt can be discharged on once daily nifedpine ER 30mg advised to maintain a low sodium diet to follow up in our office next week for BP check avoid nsaids for pain control symptoms of low bp were dicussed with the patient and she was advised to sit or lay down and then contact our office Thank you Tank Kelly DO
--- NOTE | 2017-07-25 15:46 | PATH ---
Surgical Pathology Report Patient Name: JAKUB MCKEE [facility]. Rec. #: [id number] /Age/Gender: 1990 (Age: 27) / F Account: [id number] Location: [facility] OBS/FAMILY ADVOCATE Taken: 07/16/2017 Received: 07/19/2017 Reported: 07/25/2017 Physicians: Queenie Martin M.D. Specimen(s) Received PLACENTA Clinical History , 36.6 weeks, PIH, X2, obese Final Diagnosis PLACENTA: THIRD TRIMESTER PLACENTA. TRIVASCULAR CORD. MEMBRANES WITH NO DIAGNOSTIC ABNORMALITIES. Electronically Signed Kalpana Colvin M.D. Gross Description The specimen is received fresh labeled placenta and is a 367 gram, 15.5 x 15.0 x 2.8 cm. foul-smelling placenta with attached membranes and umbilical cord. The attached membranes are abad, opaque and insert marginally. The umbilical cord measures 17.5 cm. in length and averages 1.1 cm. in diameter. The cord inserts eccentrically, 5 cm. to the nearest margin. No true knots or strictures are identified. Cut surface of the umbilical cord reveals 3 vessels. The surface is abad-brown with minimal fibrin deposition and appropriate caliber vessels. The maternal surface is red-brown with focal defects. Sectioning reveals red-brown, spongy parenchyma. No lesions are identified. Agile Project Manager sections are submitted in three cassettes as follows: 1- membrane rolls and umbilical cord; 2-3- full thickness sections of placenta. 07/22/201707/22/2017
== END 2017-07-19 15:30 | disposition home or self-care (01) | DRG 560 ==
LOC: JDEL 10:50 → JLDR 15:00 → J3W 07-17 11:25
PROVIDERS: ADMIT Obstetrics & Gynecology; ATTEND Obstetrics & Gynecology
PROC: 10E0XZZ Delivery of Products of Conception, External Approach (ICD-10-PCS; principal; 2017-07-16)
DX: O14.13 Severe pre-eclampsia, third trimester (principal); O60.14X0 Preterm labor third trimester with preterm delivery third trimester, not applicable or unspecified; Z68.42 Body mass index [BMI] 45.0-49.9, adult; E66.01 Morbid (severe) obesity due to excess calories; O13.5 Gestational [pregnancy-induced] hypertension without significant proteinuria, complicating the puerperium; O99.213 Obesity complicating pregnancy, third trimester; O62.3 Precipitate labor; O26.893 Other specified pregnancy related conditions, third trimester; J45.909 Unspecified asthma, uncomplicated; Z3A.36 36 weeks gestation of pregnancy; Z37.0 Single live birth
CPT/HCPCS: 36415; 36600; 59409; 71046-TC-FY; 80053; 80307; 81003; 81015; 82570; 82575; 82803; 83735; 84156; 84550; 85025; 85610; 85730; 86593; 86762; 86850; 86900; 86901; 87081; 87086; 87340; 87389; 87491; 87591; 88307-TC; 90715

== ENCOUNTER 2020-06-13 10:07 | Emergency (ER) | payer OTHER ==
[2020-06-13 10:21] VITALS: BP 163/107; PULSE 95; TEMP 98.1; BMI 37.1
== END 2020-06-13 12:29 | disposition home or self-care (01) ==
LOC: JERFT 10:07
DX: B65.3 Cercarial dermatitis (principal)
CPT/HCPCS: 99281-25